=== PATIENT | female | born 1970 | race Two or more races ===

== ENCOUNTER 2020-01-18 10:01 | Outpatient (CLI) | payer OTHER | END 2020-01-18 10:08 | disposition home or self-care (01) | LOC: SONOGRAMA 10:01 | PROVIDERS: ATTEND Pathology Anatomic Pathology & Clinical Pathology | DX: E04.2 Nontoxic multinodular goiter (principal) ==

== ENCOUNTER 2020-12-16 08:25 | Outpatient (CLI) | payer OTHER | END 2020-12-16 08:29 | disposition home or self-care (01) | LOC: SONOGRAMA 08:25 | PROVIDERS: ATTEND Pathology Anatomic Pathology & Clinical Pathology | DX: E04.2 Nontoxic multinodular goiter (principal) ==